=== PATIENT | female | born 1970 | race Caucasian/White ===

== ENCOUNTER 2018-03-22 12:48 | Emergency (ER) | payer MEDICAID ==
[~2018-03-22] VITALS: Ht 165.1 cm; Wt 60.4 kg
[~2018-03-22 12:48] MED LIST: NAPR-1154 PO
[2018-03-22] MEDS ORDERED: ondansetron 4mg rapidly disintigrating tab PO ONE (13:25)
[2018-03-22] MEDS ORDERED: HYDROcodone/acetaminophen 5mg/325mg tablet PO ONE (13:25)
[2018-03-22] MEDS ORDERED: LIDOcaine 5% patch TP ONE (13:25)
[2018-03-22] MEDS ORDERED: acetaminophen 325mg tablet PO ONE (13:50)
[2018-03-22] MEDS ORDERED: LIDO700A32 TOP (14:17)
[2018-03-22 14:23] VITALS: BP 130/90
[2018-03-22] MEDS ORDERED: albumin (human) 25% 100 ML IV solution IV ONE (15:45)
== END 2018-03-22 14:25 | disposition home or self-care (01) ==
LOC: ER 12:48
DX: S20.212A Contusion of left front wall of thorax, initial encounter (principal); J45.909 Unspecified asthma, uncomplicated; Z88.0 Allergy status to penicillin; Z79.899 Other long term (current) drug therapy; Z56.0 Unemployment, unspecified; W22.8XXA Striking against or struck by other objects, initial encounter; Y93.89 Activity, other specified; Y92.89 Other specified places as the place of occurrence of the external cause; Y99.8 Other external cause status
CPT/HCPCS: 71100; 99284

== ENCOUNTER 2019-03-26 10:28 | Emergency (ER) | payer MEDICAID ==
[~2019-03-26] VITALS: Ht 165.1 cm; Wt 76.0 kg
[~2019-03-26 10:28] MED LIST changes: +LIDO700A32 TOP
[2019-03-26 10:40] VITALS: BP 146/95
[2019-03-26] MEDS ORDERED: LIDOcaine 1% w/epiNEPHrine 1:200,000 30ml vial IM ONE (12:30)
[2019-03-26] MEDS ORDERED: acetaminophen w/codeine (30MG) #3 tablet PO ONE (13:15)
[2019-03-26] MEDS ORDERED: CEPH500C5 PO (13:25)
== END 2019-03-26 13:41 | disposition home or self-care (01) ==
LOC: ER 10:28
DX: L02.212 Cutaneous abscess of back [any part, except buttock and flank] (principal); J45.909 Unspecified asthma, uncomplicated; F17.200 Nicotine dependence, unspecified, uncomplicated; F10.99 Alcohol use, unspecified with unspecified alcohol-induced disorder; Z56.0 Unemployment, unspecified; Z88.0 Allergy status to penicillin; Z79.899 Other long term (current) drug therapy; Y90.9 Presence of alcohol in blood, level not specified
CPT/HCPCS: 10060; 87070; 99283

== ENCOUNTER 2019-03-28 10:28 | Emergency (ER) | payer MEDICAID ==
[~2019-03-28] VITALS: Ht 165.1 cm; Wt 65.9 kg
[~2019-03-28 10:28] MED LIST changes: +CEPH500C5 PO
[2019-03-28] MEDS ORDERED: ACET-2119 PO (12:41)
[2019-03-28 12:42] VITALS: BP 134/97
== END 2019-03-28 12:43 | disposition home or self-care (01) ==
LOC: ER 10:29
DX: L02.413 Cutaneous abscess of right upper limb (principal); J45.909 Unspecified asthma, uncomplicated; Z48.01 Encounter for change or removal of surgical wound dressing; Z88.0 Allergy status to penicillin; Z79.2 Long term (current) use of antibiotics; Z79.1 Long term (current) use of non-steroidal anti-inflammatories (NSAID); Z56.0 Unemployment, unspecified
CPT/HCPCS: 99282

== ENCOUNTER 2019-03-30 09:02 | Emergency (ER) | payer MEDICAID ==
[~2019-03-30] VITALS: Ht 165.1 cm; Wt 63.6 kg
[~2019-03-30 09:02] MED LIST changes: +ACET-2119 PO
== END 2019-03-30 11:05 | disposition home or self-care (01) ==
LOC: ER 09:03
DX: L72.3 Sebaceous cyst (principal); J45.909 Unspecified asthma, uncomplicated; Z88.0 Allergy status to penicillin; Z79.2 Long term (current) use of antibiotics; Z79.899 Other long term (current) drug therapy; Z56.0 Unemployment, unspecified
CPT/HCPCS: 99283

== ENCOUNTER 2021-01-24 00:16 | Emergency (ER) | payer MEDICAID ==
[~2021-01-24] VITALS: Ht 165.1 cm; Wt 80.0 kg
[~2021-01-24 00:16] MED LIST changes: -ACET-2119 PO; -CEPH500C5 PO
[2021-01-24 00:33] VITALS: BP 134/97
[2021-01-24] MEDS ORDERED: ondansetron 4mg rapidly disintigrating tab PO ONE (02:10)
[2021-01-24] MEDS ORDERED: ONDA4TAB6 PO (02:37)
[2021-01-24] MEDS ORDERED: pantoprazole 40 MG vial IV ONE (02:40)
[2021-01-24] MEDS ORDERED: normal saline 1000ML IV soln IVB ONE (02:40)
[2021-01-24] MEDS ORDERED: famotidine/PF 10 mg/ml inj IV ONE (02:40)
[2021-01-24] MEDS ORDERED: ondansetron/PF 4mg/2ml inj IV ONE (02:40)
[2021-01-24 02:55] LABS: BASOPHILS # (AUTO) 0.1 X10'3 (0-0.2); BASOPHILS % (AUTO) 0.9 % (0-1); EOSINOPHILS # (AUTO) 0.1 X10'3 (0-0.9); HEMATOCRIT 41.9 % (35.0-45.0); HEMOGLOBIN 14.3 g/dl (12.0-16.0); LYMPHOCYTES # (AUTO) 1.8 X10'3 (1.1-4.8); LYMPHOCYTES % (AUTO) 13.7 % (21-51); MEAN CORPUSCULAR HEMOGLOBIN 34.2 PG (27.0-31.0); MEAN CORPUSCULAR HGB CONC 34.2 g/dL (33.0-36.5); MEAN CORPUSCULAR VOLUME 99.9 FL (78-98); MEAN PLATELET VOLUME 8.9 FL (7.4-10.4); MONOCYTES # (AUTO) 0.8 X10'3 (0-0.9); NEUTROPHILS # (AUTO) 10.2 X10'3 (1.8-7.7); NEUTROPHILS % (AUTO) 78.4 % (42-75); PLATELET COUNT 439 X10'3 (140-440); RED CELL DISTRIBUTION WIDTH 14.5 % (11.5-14.5); WHITE BLOOD COUNT 13.1 X10'3 (4.5-11.0)
[2021-01-24 02:58] LABS: ALANINE AMINOTRANSFERASE 21 U/L (12-78); ALBUMIN 3.9 G/DL (3.4-5.0); ALBUMIN/GLOBULIN RATIO 1.1 (1.1-1.5); ALKALINE PHOSPHATASE 54 IU/L (46-116); ANION GAP 12 (8-16); ASPARTATE AMINO TRANSFERASE 39 U/L (10-37); BILIRUBIN,TOTAL 0.6 MG/DL (0.1-1.0); BLOOD UREA NITROGEN 10 MG/DL (7-18); BUN/CREATININE RATIO 8.2 (6.6-38.0); CALCIUM 9.1 MG/DL (8.5-10.1); CHLORIDE 98 MMOL/L (99-107); CREATININE 1.22 MG/DL (0.40-0.90); GLUCOSE 137 MG/DL (70-104); POTASSIUM 3.8 MMOL/L (3.5-5.1); SODIUM 136 MMOL/L (135-145); TOTAL PROTEIN 7.6 G/DL (6.4-8.2); eGFR 46 ML/MIN
[2021-01-24 03:01] LABS: LIPASE 61 U/L (73-393); TROPONIN I < 0.04 NG/ML (0.0-0.05)
[2021-01-25] MEDS ORDERED: PROC-8 PO (13:32)
== END 2021-01-24 03:44 | disposition home or self-care (01) ==
LOC: ER 00:16
DX: A05.9 Bacterial foodborne intoxication, unspecified (principal); E86.0 Dehydration; R11.2 Nausea with vomiting, unspecified; R10.13 Epigastric pain; J45.909 Unspecified asthma, uncomplicated; F17.200 Nicotine dependence, unspecified, uncomplicated; F19.90 Other psychoactive substance use, unspecified, uncomplicated; Z72.89 Other problems related to lifestyle; Z56.0 Unemployment, unspecified; Z88.0 Allergy status to penicillin; Z79.899 Other long term (current) drug therapy
CPT/HCPCS: 36415; 80053; 83690; 84484; 85025; 96374; 96375; 99284; C9113; J2405; J3490; J7030

== ENCOUNTER 2021-01-25 09:14 | Emergency (ER) | payer MEDICAID ==
[~2021-01-25] VITALS: Ht 165.1 cm; Wt 81.8 kg
[~2021-01-25 09:14] MED LIST changes: +ONDA4TAB6 PO
[2021-01-25] MEDS ORDERED: metoclopramide 5 mg/ml inj IV ONE (09:45)
[2021-01-25] MEDS ORDERED: normal saline 1000ML IV soln IVB ONE ×2 (09:45→13:35)
[2021-01-25 10:43] LABS: BASOPHILS # (AUTO) 0.1 X10'3 (0-0.2); EOSINOPHILS # (AUTO) 0.1 X10'3 (0-0.9); EOSINOPHILS % (AUTO) 0.6 % (0-6); HEMATOCRIT 43.2 % (35.0-45.0); HEMOGLOBIN 15.1 g/dl (12.0-16.0); LYMPHOCYTES % (AUTO) 16.8 % (21-51); MEAN CORPUSCULAR HEMOGLOBIN 34.8 PG (27.0-31.0); MEAN CORPUSCULAR VOLUME 99.4 FL (78-98); MEAN PLATELET VOLUME 8.2 FL (7.4-10.4); MONOCYTES # (AUTO) 0.7 X10'3 (0-0.9); MONOCYTES % (AUTO) 6.2 % (2-12); NEUTROPHILS # (AUTO) 8.9 X10'3 (1.8-7.7); NEUTROPHILS % (AUTO) 75.4 % (42-75); PLATELET COUNT 436 X10'3 (140-440); RED BLOOD COUNT 4.35 X10'6 (4.20-5.60); RED CELL DISTRIBUTION WIDTH 14.4 % (11.5-14.5); WHITE BLOOD COUNT 11.8 X10'3 (4.5-11.0)
[2021-01-25 10:58] LABS: ALANINE AMINOTRANSFERASE 28 U/L (12-78); ALBUMIN 4.3 G/DL (3.4-5.0); ALBUMIN/GLOBULIN RATIO 1.1 (1.1-1.5); ALKALINE PHOSPHATASE 56 IU/L (46-116); ANION GAP 8 (8-16); ASPARTATE AMINO TRANSFERASE 43 U/L (10-37); BILIRUBIN,TOTAL 1.1 MG/DL (0.1-1.0); BLOOD UREA NITROGEN 9 MG/DL (7-18); BUN/CREATININE RATIO 8.3 (6.6-38.0); CALCIUM 9.1 MG/DL (8.5-10.1); CHLORIDE 93 MMOL/L (99-107); CREATININE 1.08 MG/DL (0.40-0.90); GLUCOSE 114 MG/DL (70-104); LIPASE 80 U/L (73-393); POTASSIUM 3.6 MMOL/L (3.5-5.1); SODIUM 129 MMOL/L (135-145); TOTAL PROTEIN 8.3 G/DL (6.4-8.2); eGFR 53 ML/MIN
[2021-01-25] MEDS ORDERED: PROC-8 PO (13:32)
[2021-01-25] MEDS ORDERED: diphenhydrAMINE 50 mg/ml inj IV ONE (13:35)
[2021-01-25] MEDS ORDERED: proCHLORperazine 10 MG/2 ml inj IV ONE (13:35)
--- NOTE | 2021-01-25 14:45 | NUR ---
RELIEVING RN FOR BREAK, PT ADINA PO CHALLENGE WELL, NO N/V
[2021-01-25 15:00] VITALS: BP 160/80
== END 2021-01-25 15:04 | disposition home or self-care (01) ==
LOC: ER 09:15
DX: R11.2 Nausea with vomiting, unspecified (principal); R10.84 Generalized abdominal pain; J45.909 Unspecified asthma, uncomplicated; F41.9 Anxiety disorder, unspecified; F17.200 Nicotine dependence, unspecified, uncomplicated; Z72.89 Other problems related to lifestyle; Z56.0 Unemployment, unspecified; Z88.0 Allergy status to penicillin; Z79.899 Other long term (current) drug therapy
CPT/HCPCS: 36415; 80053; 83690; 85025; 96361; 96374; 96375; 99285; J0780; J1200; J2765; J7030